=== PATIENT | female | born 1935 | race Caucasian/White ===

== ENCOUNTER 2019-06-21 14:27 | Emergency (ER) | payer MEDICARE ==
[~2019-06-21] VITALS: Ht 167.6 cm; Wt 52.3 kg
[2019-06-21] MEDS ORDERED: SODIUM CHLORIDE FLUSH 10ML SYR IVF ONE (15:00)
[2019-06-21 15:14] LABS: BASOPHILS # (AUTO) 0.01 x10^3/uL (0-0.1); BASOPHILS % (AUTO) 0 % (0-1); EOSINOPHILS # (AUTO) 0.17 x10^3/uL (0-0.4); EOSINOPHILS % (AUTO) 3 % (1-7); LYMPHOCYTES # (AUTO) 1.25 x10^3/uL (1-3.4); LYMPHOCYTES % (AUTO) 18 % (22-44); MD NO; MEAN CORPUSCULAR HGB CONC 32.6 g/dL (32.4-35.8); MEAN CORPUSCULAR VOLUME 95.1 fL (80-100); MEAN PLATELET VOLUME 8.4 fL (7.4-10.4); MONOCYTES # (AUTO) 0.63 x10^3/uL (0.2-0.8); MONOCYTES % (AUTO) 9 % (2-9); NEUTROPHILS # (AUTO) 4.81 x10^3/uL (1.8-6.8); NEUTROPHILS % (AUTO) 70 % (42-75); PLATELET COUNT 202 x10^3/uL (130-400); RED BLOOD COUNT 4.57 x10^6/uL (3.82-5.3)
--- NOTE | 2019-06-21 15:14 | NUR ---
Assumed care of patient. C/O lip lac S/P near syncopal event thsi AM. Patient states that she often gets dizzy shortly after taking Parkinson's meds as she had this AM. Paced. Denies CP, SOB, and dizziness. Patient recently completed 7 day course of abx for UTI. Continues to report urinary frequency. Denies bladder pain, flank pain, and dysuria. Cousin at bedside. Will continue to monitor.
[2019-06-21 15:26] LABS: ANION GAP 8 mmol/L (5-15); CALCIUM 8.9 mg/dL (8.5-10.1); CHLORIDE 105 mmol/L (98-107)
[2019-06-21 15:29] LABS: ALANINE AMINOTRANSFERASE 15 U/L (12-78); ALKALINE PHOSPHATASE 66 U/L (45-117); BILIRUBIN,TOTAL 0.5 mg/dL (0.2-1.0); CREATININE 1.17 mg/dL (0.55-1.02); TOTAL PROTEIN 7.6 g/dL (6.4-8.2); TROPONIN I < 0.015 ng/mL (0.000-0.045)
[2019-06-21] MEDS ORDERED: TIMO5DRO28 EACHEYE (15:48)
[2019-06-21] MEDS ORDERED: LISI-167 PO (15:48)
[2019-06-21] MEDS ORDERED: PROP20TA PO (15:48)
[2019-06-21] MEDS ORDERED: LATA2.5D3 EACHEYE (15:48)
[2019-06-21] MEDS ORDERED: ROPI3TAB4 PO (15:48)
[2019-06-21] MEDS ORDERED: PRAV20TA2 PO (15:48)
[2019-06-21] MEDS ORDERED: [UNRECOGNIZED DRUG - CODE] PO (15:48)
[2019-06-21] MEDS ORDERED: PROP10TA16 PO (15:48)
--- NOTE | 2019-06-21 15:48 | NUR ---
at bedside. NAD. No needs.
[2019-06-21 16:02] LABS: MICROSCOPIC NOT IND
[2019-06-21 16:24] LABS: CULTURE INDICATED? NO
--- NOTE | 2019-06-21 16:59 | NUR ---
BREAK RN: TOOK PATIENT TO BATHROOM GAIT SLOW AND STEADY
--- NOTE | 2019-06-21 17:38 | NUR ---
[facility] PAC[employer] INTERROGATOR APPLIED.
--- NOTE | 2019-06-21 17:40 | NUR ---
INTERROGATOR "SENDING DATA" PT RESTING QUIETLY ON GURNEY, INTERMITTENTLY DABBING LIP LAC. SPOUSE IN ROOM.
--- NOTE | 2019-06-21 18:10 | NUR ---
Patient resting in [facility]. No needs.
[2019-06-21] MEDS ORDERED: CARB1TAB22 PO (18:53)
--- NOTE | 2019-06-21 19:00 | NUR ---
Interrogation info not received on first attempt. Pace maker interrogated a second time. Awaiting results.
[2019-06-21 20:07] VITALS: BP 181/87
--- NOTE | 2019-06-21 20:07 | NUR ---
MD aware patient is hypertensive at [place].
--- NOTE | 2019-06-21 20:07 | NUR ---
Patient/Caregiver given discharge instructions and they have confirmed that they understand the instructions. Patient ambulatory with steady gait.
== END 2019-06-21 20:09 | disposition home or self-care (01) ==
LOC: ED 19:34
DX: S01.511A Laceration without foreign body of lip, initial encounter (principal); R55 Syncope and collapse; I10 Essential (primary) hypertension; E78.5 Hyperlipidemia, unspecified; G20 Parkinson's disease; M54.2 Cervicalgia; R94.31 Abnormal electrocardiogram [ECG] [EKG]; Z95.0 Presence of cardiac pacemaker; W07.XXXA Fall from chair, initial encounter; Y93.89 Activity, other specified; Y92.89 Other specified places as the place of occurrence of the external cause; Y99.8 Other external cause status
CPT/HCPCS: 12051; 36415; 70450; 71045; 72125; 80053; 81003; 84484; 85025; 93005; 99285